=== PATIENT | male | born 1985 | race Asian ===

== ENCOUNTER 2017-10-10 11:35 | Emergency (ER) | payer OTHER ==
[2017-10-10] MEDS: IBUPROFEN 600 MG TAB PO (12:21)
[2017-10-10] MEDS: CEPHALEXIN 500 MG CAP PO (12:21)
[2017-10-10] MEDS: LIDOCAINE 1% (MDV) 10 ML INJ INFIL (12:21)
[2017-10-10] MEDS: TRIMETHOPRIM/SULFAMETHOX (DS) TAB PO (12:21)
== END 2017-10-10 13:27 | disposition home or self-care (01) ==
LOC: FTE 11:35
DX: L02.414 Cutaneous abscess of left upper limb (principal); Z87.891 Personal history of nicotine dependence
CPT/HCPCS: 10060; 99284-25